=== PATIENT | female | born 1970 | race Caucasian/White ===

== ENCOUNTER 2016-06-16 07:09 | Emergency (ER) | payer MEDICAID ==
--- NOTE | 2016-06-16 07:33 | EDPHY ---
HPI/HX/ROS/PE/MDM Narrative: CHIEF COMPLAINT: Worsening influenza symptoms. HPI: This is a 45-year-old female diagnosed with Flu B 2 days ago presenting via EMS. She is complaining of worsening myalgia, sore throat, bilateral ear pain, and shortness of breath since that time. She has been taking a cough suppressant but still has cough. No vomiting, diarrhea, or other complaints. REVIEW OF SYSTEMS: Aside from elements discussed in the HPI, a comprehensive 10-point review of systems was reviewed and is negative. PMH: IUD. SOCIAL HISTORY: director mortgage. PHYSICAL EXAM: General:Patient is alert, in no acute distress. ENT:Eyes are normal to inspection. ENT inspection normal. Neck: Normal inspection. Full range of motion. Respiratory:No respiratory distress. Breath sounds normal bilaterally. Cardiovascular: Regular rate and rhythm. Strong peripheral pulses. Normal cap refill. Abdomen:The abdomen is nontender to palpation. There are no peritoneal signs. There are normal bowel sounds. Back: Normal to inspection. No tenderness to palpation. Skin: Normal color. No rash. Warm and dry. Extremities: Normal appearance. Full range of motion. Neuro: Oriented x3. Normal motor function. Normal sensory function. ED Course: An IV was established and labs ordered. Chest x-ray ordered. 650mg PO Tylenol administered for fever, along with 2L IV saline for hydration and 30mg IV Toradol for pain. Study: PA and Lateral Chest X-ray Indication: Chest pain Results: I viewed the images myself on the PACS system. The radiologist interpretation per Dr. Stephenson is: Prominence of perihilar interstitial markings and peribronchial cuffing right side greater than left. Findings are nonspecific but can be seen with bronchitis , reactive airway disease, or viral process. MDM: This patient presents with diffuse myalgias consistent with influenza, for which she recently tested positive for. There is no evidence of meningitis, pneumonia, abdominal process or severe sepsis. She was treated with IV fluids and symptomatic treatment and on re-evaluation feels much better and feels comfortable going home. We discussed strict return precautions. - Data Points Laboratory Results: Laboratory Results 06/16/16 07:25 06/16/16 07:25 06/16/16 06/16/16 06/16/16 10:45 07:25 07:25 WBC 6.75 10^3/uL 10^3/uL (3.80-9.50) RBC 5.11 10^6/uL 10^6/uL (4.18-5.33) Hgb 16.5 g/dL H g/dL (12.6-16.3) Hct 47.3 % H % (38.0-47.0) MCV 92.6 fL fL (81.5-99.8) MCH 32.3 pg pg (27.9-34.1) MCHC 34.9 g/dL g/dL (32.4-36.7) RDW 11.9 % % (11.5-15.2) Plt Count 195 10^3/uL 10^3/uL (150-400) MPV 9.7 fL fL (8.7-11.7) Neut % (Auto) 79.5 % H % (39.3-74.2) Lymph % (Auto) 11.9 % L % (15.0-45.0) Dare % (Auto) 7.6 % % (4.5-13.0) Eos % (Auto) 0.3 % L % (0.6-7.6) Baso % (Auto) 0.4 % % (0.3-1.7) Nucleat RBC Rel Count 0.0 % % (0.0-0.2) Absolute Neuts (auto) 5.37 10^3/uL 10^3/uL (1.70-6.50) Absolute Lymphs (auto) 0.80 10^3/uL L 10^3/uL (1.00-3.00) Absolute Monos (auto) 0.51 10^3/uL 10^3/uL (0.30-0.80) Absolute Eos (auto) 0.02 10^3/uL L 10^3/uL (0.03-0.40) Absolute Basos (auto) 0.03 10^3/uL 10^3/uL (0.02-0.10) Absolute Nucleated RBC 0.00 10^3/uL 10^3/uL (0-0.01) Immature Gran % 0.3 % % (0.0-1.1) Immature Gran # 0.02 10^3/uL 10^3/uL (0.00-0.10) Sodium 139 mEq/L mEq/L (134-144) Potassium 4.3 mEq/L mEq/L (3.5-5.2) Chloride 99 mEq/L mEq/L (97-110) Carbon Dioxide 25 mEq/l mEq/l (22-31) Anion Gap 15 mEq/L mEq/L (8-16) BUN 17 mg/dL mg/dL (7-23) Creatinine 0.8 mg/dL mg/dL (0.6-1.0) Estimated GFR > 60 Glucose 81 mg/dL mg/dL (70-100) Calcium 9.7 mg/dL mg/dL (8.5-10.4) Urine Color MEE Urine Appearance MODERATELY TURBID Urine pH 5.0 (5.0-7.5) Ur Specific Logan 1.031 H (1.002-1.030) Urine Protein 1+ H (NEGATIVE) Urine Ketones TRACE H (NEGATIVE) Urine Blood NEGATIVE (NEGATIVE) Urine Nitrate NEGATIVE (NEGATIVE) Urine Bilirubin NEGATIVE (NEGATIVE) Urine Urobilinogen NEGATIVE EU EU (0.2-1.0) Ur Leukocyte Esterase NEGATIVE (NEGATIVE) Urine RBC 3-5 /hpf H /hpf (0-3) Urine WBC 5-10 /hpf H /hpf (0-3) Ur Epithelial Cells TRACE /lpf /lpf (NONE-1+) Urine Bacteria NONE SEEN /hpf /hpf (NONE SEEN) Hyaline Casts 5-15 /lpf /lpf (0-1) Granular Casts 15-25 /lpf H /lpf (0-1) Urine Mucus 4+ /lpf H /lpf (NONE-1+) Urine Glucose NEGATIVE (NEGATIVE) Medications Given: Discontinued Medications Acetaminophen (Tylenol) 650 mg PO EDNOW ONE Stop: 06/16/16 07:57 Last Admin: 06/16/16 08:13 Dose: 650 mg Sodium Chloride (Ns) 1,000 mls @ 0 mls/hr IV ONCE ONE PRN Reason: Wide Open Stop: 06/16/16 07:38 Last Admin: 06/16/16 07:37 Dose: 1,000 mls Sodium Chloride (Ns) 1,000 mls @ 0 mls/hr IV ONCE ONE PRN Reason: Wide Open Stop: 06/16/16 07:57 Last Admin: 06/16/16 08:14 Dose: 1,000 mls Ketorolac Tromethamine (Toradol) 30 mg IVP EDNOW ONE Stop: 06/16/16 07:57 Last Admin: 06/16/16 08:13 Dose: 30 mg General Time Seen by Provider: 06/16/16 07:26 Initial Vital Signs: Initial Vital Signs Temperature (C) 37.7 C 06/16/16 07:16 Heart Rate 88 06/16/16 07:16 Respiratory Rate 18 06/16/16 07:16 Blood Pressure 99/74 L 06/16/16 07:16 O2 Sat (%) 96 06/16/16 07:16 O2 Delivery Mode Room Air Allergies/Adverse Reactions: Penicillins Allergy (Verified 06/16/16 07:21) Home Medications: Medication Instructions Recorded NK [No Known Home Meds] 06/16/16 Departure - Departure Disposition: Home, Routine, Self-Care Clinical Impression: Influenza Condition: Good Instructions: Influenza (ED) Additional Instructions: Drink plenty of fluids and be sure to get rest. Follow up with your primary care provider in the next 2-3 days if symptoms are not improving. If you need a primary care provider you have been given the telephone number of the on-call outpatient doctor. Return to the emergency department for any serious worsening of condition. Referrals: Jannette Mg MD [Medical Doctor] - As per Instructions Report Scribed for: Jefferson Godoy Report Scribed by: Ranjan Hoang Date of Report: 06/16/16 Time of Report: 07:29 Physician Review and Approval Statement: Portions of this note were transcribed by a medical health researcher. I personally performed a history, physical exam, medical decision making, and confirmed accuracy of information the transcribed note.
[2016-06-16] MEDS ORDERED: NS 1,000 ML IV ONE ×2 (07:37→07:56)
[2016-06-16] MEDS ORDERED: KETOROLAC 30 MG/1 ML SDV IVP ONE (07:56)
[2016-06-16] MEDS ORDERED: ACETAMINOPHEN 325 MG TAB PO ONE (07:56)
[2016-06-16 08:08] LABS: % IMMATURE GRANULYOCYTES 0.3 % (0.0-1.1); ABSOLUTE IMMATURE GRANULOCYTES 0.02 10^3/uL (0.00-0.10); ADD DIFF? NO; ADD MORPH? NO; ADD SCAN? NO; ATYPICAL LYMPHOCYTE FLAG 30 (0-99); FRAGMENT RBC FLAG 0 (0-99); HEMATOCRIT 47.3 % (38.0-47.0); HEMOGLOBIN 16.5 g/dL (12.6-16.3); LEFT SHIFT FLG 50 (0-99); LIPEMIA HEMOLYSIS FLAG 90 (0-99); MEAN CELL HEMOGLOBIN 32.3 pg (27.9-34.1); MEAN CELL HEMOGLOBIN CONCENTR. 34.9 g/dL (32.4-36.7); MEAN CELL VOLUME 92.6 fL (81.5-99.8); MEAN PLATELET VOLUME 9.7 fL (8.7-11.7); PLATELET CLUMPS FLAG 0 (0-99); PLATELET COUNT 195 10^3/uL (150-400); RED BLOOD CELL COUNT 5.11 10^6/uL (4.18-5.33); RED CELL DISTRIBUTION WIDTH 11.9 % (11.5-15.2)
[2016-06-16 08:28] LABS: ANION GAP 15 mEq/L (8-16); CALCIUM 9.7 mg/dL (8.5-10.4); CARBON DIOXIDE 25 mEq/l (22-31); CHLORIDE 99 mEq/L (97-110); CREATININE 0.8 mg/dL (0.6-1.0); GLOMERULAR FILTRATION RATE > 60; GLUCOSE 81 mg/dL (70-100); POTASSIUM 4.3 mEq/L (3.5-5.2); SODIUM 139 mEq/L (134-144)
[2016-06-16 09:59] VITALS: RESP 16
[2016-06-16 10:55] LABS: COLOR AMBER; LEUKOCYTE ESTERASE,URINE NEGATIVE (NEGATIVE); NITRITE,URINE NEGATIVE (NEGATIVE)
[2016-06-16 11:10] LABS: GRANULAR CASTS 15-25 /lpf (0-1); MUCUS 4+ /lpf (NONE-1+)
[2016-06-16 11:11] LABS: BACTERIA NONE SEEN /hpf (NONE SEEN)
[2016-06-16 12:38] VITALS: BP 96/61; PULSE 72; TEMP 97.9; O2SAT 96
== END 2016-06-16 13:19 | disposition home or self-care (01) ==
LOC: EDUNIT#
DX: J11.1 Influenza due to unidentified influenza virus with other respiratory manifestations (principal)
CPT/HCPCS: 96374; J1885

== ENCOUNTER → 2017-01-24 | Outpatient (CLI) | payer MEDICAID | LOC: BMCIMAGING 09:05 | PROVIDERS: ATTEND Midwife | DX: Z12.31 Encounter for screening mammogram for malignant neoplasm of breast (principal) | CPT/HCPCS: G0202 ==

== ENCOUNTER → 2017-01-27 | Outpatient (CLI) | payer MEDICAID | LOC: BMCIMAGING 11:06 | PROVIDERS: ATTEND Midwife | DX: R92.8 Other abnormal and inconclusive findings on diagnostic imaging of breast (principal) | CPT/HCPCS: 86694-90; G0206; G0472 ==

== ENCOUNTER → 2017-03-12 | Outpatient (CLI) | payer MEDICAID | LOC: GIMAGING 13:57 | PROVIDERS: ATTEND Registered Nurse | DX: R05 Cough (principal); R50.9 Fever, unspecified | CPT/HCPCS: 71020-PO ==

== ENCOUNTER → 2018-01-31 | Outpatient (CLI) | payer MEDICAID | LOC: BMCIMAGING 12:45 | PROVIDERS: ATTEND Midwife | DX: Z12.31 Encounter for screening mammogram for malignant neoplasm of breast (principal) ==